=== PATIENT | male | born 1970 | race Caucasian/White ===

== ENCOUNTER 2018-06-19 12:01 | Inpatient (IN) | payer OTHER ==
[~2018-06-19] VITALS: Ht 175.3 cm
--- NOTE | ~2018-06-19 | PROC ---
[address] [address] PROCEDURE REPORT Name: NIKKIE PACKER Room: [address] ADM IN M.R.#: [id number] Admission: 06/19/18 Attend Phys: Vernell Ferreira MD Discharge: Date of : 72 Report #: [id number] THIS REPORT FOR: //name// For GI report, please see the Provation report in Perceptive 7. By: [id number] Records Staff [facility] /YASH
[2018-06-19 12:17] VITALS: BP 117/70
[2018-06-19 12:30] LABS: ABSOLUTE LYMPHOCYTES 1.3 thou/uL (0.8-5.3); ABSOLUTE MONOCYTES 0.3 thou/uL (0.0-1.2); ABSOLUTE NEUTROPHILS 1.8 thou/uL (1.6-8.1); BASOPHILS 0.5 %; EOSINOPHILS 1.4 %; HEMATOCRIT 31.8 % (42.0-52.0); HEMOGLOBIN 11.1 gm/dL (14.0-18.0); MCH 30.7 pg (26.0-34.0); MCHC 34.9 g/dL (28.0-37.0); MCV 87.7 fL (80.0-100.0); MONOCYTES 8.3 %; MPV 9.1 fl. (7.2-11.1); NUCLEATED RBCS 0 /100WBC; PLATELET COUNT* 138 thou/uL (150-400); POLYS 52.8 %; RBC 3.63 mil/uL (4.50-6.00); RDW-CV 15.1 % (10.5-14.5); WBC 3.5 thou/uL (4.0-11.0)
[2018-06-19 12:37] LABS: CALCIUM 7.6 mg/dL (8.5-10.1); CREATININE 0.7 mg/dL (0.6-1.3); POTASSIUM 3.2 mmol/L (3.5-5.1)
[2018-06-19 12:43] LABS: ALBUMIN 2.5 g/dL (3.4-5.0); TOTAL BILIRUBIN 0.4 mg/dL (<0.1-1.0); TOTAL PROTEIN 6.2 g/dL (6.4-8.2)
[2018-06-19 14:08] VITALS: BP 109/74
[2018-06-19 14:15] VITALS: BP 102/66
--- NOTE | 2018-06-19 15:11 | EKG ---
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: [facility] : 1970 Requested By: Devan Sorto Order Number: [id number] MD: Nael Caceres Measurements Intervals [place] Rate: 94 P: 14 AR: 158 QRS: 62 QRSD: 97 T: 3 QT: 394 QTc: 493 Interpretive Statements Sinus rhythm septal infarct, old Borderline T abnormalities, inferior leads No previous ECG available for comparison Electronically Signed On 06-19-2018 15:11:42 PREMIUM CARD CANCELLATION CLERK by Nael Caceres [email or web address] <ELECTRONICALLY SIGNED> By: Nael Caceres MD, [facility] 06/19/18 1511 1246 1246 Nael Caceres MD, FACC /EPI
[2018-06-19 15:16] LABS: URINE BILIRUBIN NEGATIVE (Negative); URINE BLOOD NEGATIVE (Negative); URINE CLARITY CLEAR; URINE COLOR YELLOW; URINE GLUCOSE-RANDOM NEGATIVE (Negative); URINE KETONES NEGATIVE (Negative); URINE LEUKOCYTES-REFLEX NEGATIVE (Negative); URINE NITRITE-REFLEX NEGATIVE (Negative); URINE PROTEIN NEGATIVE (Negative); URINE UROBILINOGEN 0.2 E.U./dl (0.2-1.0)
--- NOTE | 2018-06-19 15:46 | NUR ---
RECEIVED REPORT FROM [facility] IN ED AND ASSUMED CARE OF PT @ 0755.PT IS A/O X4,VSS,ON ROOM AIR.ASSESSMENT CHARTED.IV PATENT WITH IVF INFUSING PER ORDERS.IV ANTIBIOTICS GIVEN.SPECIAL CONTACT ISOLATION INTITATED-PENDING CDIFF RULE OUT.UA COLLECTED.PT IS CALM AND COOPERATIVE WITH NO C/O PAIN AT TIME OF ASSESSMENT.PT IS UP AD DORINA IN ROOM BUT EDUCATED TO CALL FOR ASSISTANCE IF FEELING DIZZY.PT LEFT RESTING IN BED WITH CALL LIGHT WITHIN REACH.WILL CONTINUE TO MONITOR.
[2018-06-19 16:09] LABS: ALBUMIN 2.6 g/dL (3.4-5.0); DIRECT BILIRUBIN 0.1 mg/dL (<0.1-0.3); TOTAL BILIRUBIN 0.3 mg/dL (<0.1-1.0); TOTAL PROTEIN 5.8 g/dL (6.4-8.2)
--- NOTE | 2018-06-19 16:42 | NUR ---
VSS.PT REMAINS ON ROOM AIR.NO C/O PAIN.IV PATENT WITH IVF INFUSING PER ORDERS.ISOLATION MAINTAINED FOR PENDING CDIFF.STOOL SAMPLE COLLECTED.PT INFORMED OF PLAN OF CARE AND COMMUNICATES UNDERSTANDING.HOURLY ROUNDING COMPLETED FOR PT SAFETY.CALL LIGHT AND FALL PRECAUTIONS IN PLACE.WILL CONTINUE TO MONITOR FOR DURATION OF SHIFT.
[2018-06-19 17:01] VITALS: BP 102/72
[2018-06-19 20:00] VITALS: BP 110/73
--- NOTE | 2018-06-20 04:41 | NUR ---
PT A&Ox4. UP AD DORINA. IV L AC PATENT, INFUSING. DIARRHEA OCCURED DURING SHIFT. COLONOSCOPY PREP COMPLETE, STOOL CLEAR. DENIED PAIN. ON ISOLATION PRECAUTIONS FOR A PENDING C-DIFF. NPO AFTER 6AM TODAY. CALL LIGHT WITHIN REACH. HOURLY ROUNDING COMPLETE. WILL CONTINUE TO MONITOR.
[2018-06-20 08:00] VITALS: BP 96/63
[2018-06-20 12:00] VITALS: BP 105/75
[2018-06-20 14:17] LABS: HEMATOCRIT 30.4 % (42.0-52.0); HEMOGLOBIN 10.3 gm/dL (14.0-18.0); MCH 29.8 pg (26.0-34.0); MCHC 33.8 g/dL (28.0-37.0); MCV 88.1 fL (80.0-100.0); MPV 9.3 fl. (7.2-11.1); RBC 3.46 mil/uL (4.50-6.00); RDW-CV 15.1 % (10.5-14.5); WBC 2.2 thou/uL (4.0-11.0)
[2018-06-20 14:42] LABS: ALBUMIN 2.3 g/dL (3.4-5.0); CALCIUM 7.4 mg/dL (8.5-10.1); CREATININE 0.8 mg/dL (0.6-1.3); MAGNESIUM 1.8 mg/dL (1.8-2.4); TOTAL BILIRUBIN 0.4 mg/dL (<0.1-1.0); TOTAL PROTEIN 5.5 g/dL (6.4-8.2)
[2018-06-20 14:57] LABS: POTASSIUM 2.7 mmol/L (3.5-5.1)
[2018-06-20 15:18] LABS: ESR (SEDRATE) 21 mm/hr (0-15)
--- NOTE | 2018-06-20 16:56 | NUR ---
PT.IN BED. SPOKE WITH HIM. HE SAID HE LIVES IN [place]. IS UNEMPLOYED. HAD RECENTLY BEEN TO [facility]. IS NORMALLY INDEPENDENT. WANTING TO KNOW ABOUT ASSISTANCE REGARDING HOSPITAL BILL. OBTAINED AND GAVE HIM A PACKET FOR FINANCIAL ASSISTANCE FROM BUSINESS OFFICE. HE ASKED ABOUT GETTING [place] MEDICA[place]. EXPLAINED HE HAD TO LIVE IN [place] FOR AT LEAST 30 DAYS AND HAVE PROFF OF RESIDENCY. HE COULD THEN APPLY. IF HE QUALIFIED FOR MEDICAID IT WOULD BE RETRO ACTIVE, ONCE IN PLACE, FOR 3 MONTHS. GENERALLY HEALTHY PERSONS WITHOUT A DISABILITY DO NOT QUALIFY FOR MEDICAID.
--- NOTE | 2018-06-20 19:16 | NUR ---
PT IS ALERT AND ORIENTED X 4. NPO FOR EGD AND COLONOSCOPY. DENIED PAIN AND NAUSEA IN AM. PT RETURNED FROM PROCEDURE @ 1250. IVF INFUSING. C/O NAUSEA AND IV MEDICATION GIVEN. UP AD DORINA TO BR. RECEIVED POTASSIUM PER IV ELECTROLYTE REPLACEMENT. ISOLATION PRECAUTIONS AND HOURLY ROUNDS MAINTAINED. WILL USE CALL LIGHT FOR ASSISTANCE.
[2018-06-20 22:06] LABS: HEPATITIS B SURFACE AG Negative (Negative)
--- NOTE | 2018-06-20 23:04 | NUR ---
RECIEVED REPORT AND ASSUMED CARE OF PT AT 1945. PT UP IN ROOM WASHING HANDS AT SINK AT THAT TIME. PT REPORTED NAUSEA IMPROVED FROM EARLIER TODAY. PT DENIES ABDOMINAL PAIN OR DISCOMFORT. CALL LIGHT IN REACH, PT USING APPROPRIATELY.
[2018-06-20 23:08] LABS: HEPATITIS B SURFACE AG Negative (Negative)
[2018-06-21 04:29] LABS: CALCIUM 8.1 mg/dL (8.5-10.1); CREATININE 0.7 mg/dL (0.6-1.3); MAGNESIUM 1.8 mg/dL (1.8-2.4); POTASSIUM 3.4 mmol/L (3.5-5.1)
--- NOTE | 2018-06-21 06:37 | NUR ---
HEART RATE AND BLOOD PRESSURE WITHIN NORMAL LIMITS DURING SHIFT. O2 SAT > 95% ON ROOM AIR. PT AFEBRILE. NO NAUSEA, VOMITING OR DIARRHEA DURING SHIFT. POTASSIUM REPLACED DURING SHIFT. AM LAB VALUES SHOW POTASSIUM LEVEL AT 3.4. PT GIVEN 40 MEQ KCL PO AT 0600. NEXT DOSE DUE AT 0800. PT DENIED PAIN OR DISCOMFORT DURING SHIFT. NO ACUTE CHANGES, WILL CONTINUE TO MONITOR.
[2018-06-21 09:45] VITALS: BP 115/80
[2018-06-21 12:50] LABS: CD3 (T-Mature) 86 % (55-91); CD3 TOTAL CD3 688 cells/uL (550-3003); CD4 (T HELPER) 3 % (33-70); CD8 (T SUPRESSOR) 72 % (4-34); TOTAL CD4 24 cells/uL (401-2310); TOTAL CD8 576 cells/uL (40-1122)
[2018-06-21 12:51] LABS: CD4:CD8 0 (1.0-5.0)
--- NOTE | 2018-06-21 17:53 | NUR ---
PT REMAINED ALERT AND ORIENTED THIS SHIFT. PT DENIED ANY PAIN, NAUSEA OR VOMITING. FALL RISK PRECAUTIONS IN PLACE. PT IS UP AD DORINA, ON ROOM AIR, AND REGULAR DIET. PT IS NO LONGER ON PRECAUTIONS FOR C.DIFF RESULTS CAME BACK NEGATIVE. HOURLY ROUNDING COMPLETED. WILL CONTINUE TO MONITOR.
[2018-06-21 19:15] VITALS: BP 104/71
--- NOTE | 2018-06-21 22:55 | NUR ---
INITAL ASSESMENT COMPLETED AT 1915. PT REPOTS HAVING 4 TO 5 LIQUID STOOLS TODAY. ASKED PT IF I COULD CALL FRO PRN IMMODIUM. PT STATES HE HAS TAKEN IMMODIUM BEFORE BUT DID NOT WANT TO TAKE IT. PT'S IV IN LEFT AC INFILTRATED. IV DISCONTINUED. STARTED 20 GUAGE SALINE LOCK IN RIGHT UPPER ARM ON FIRST ATTEMPT. CALL LIGHT IN REACH, PT USING APPROPRIATELY.
--- NOTE | 2018-06-22 05:59 | NUR ---
PT CONTINUES TO HAVE LOOSE STOOLS. PT CONTINUED ON NORMAL SALINE AT 100 ML/HR. PTS BLOOD PRESSURE AND HEART RATE WITHIN NORMAL LIMITS. PTS O2 SAT > 96% ON ROOM AIR, PT AFEBRILE DURING SHIFT. PT DENIED PAIN, DISCOMFORT OR NAUSEA DURING SHIFT. NO ACUTE CHANGES, WILL CONTINUE TO MONITOR.
[2018-06-22 08:30] VITALS: BP 91/58
[2018-06-22 11:58] VITALS: BP 92/62
[2018-06-22 12:26] LABS: CALCIUM 7.9 mg/dL (8.5-10.1); CREATININE 0.7 mg/dL (0.6-1.3); MAGNESIUM 1.9 mg/dL (1.8-2.4); POTASSIUM 3.3 mmol/L (3.5-5.1)
[2018-06-22 16:43] VITALS: BP 95/50
--- NOTE | 2018-06-22 17:07 | NUR ---
PT REMAINED ALERT AND ORIENTED. PT IS STILL HAVING DIARRHEA, STOOL SAMPLE WAS COLLECTED TODAY. PT POTASSIUM WAS 3.3, GAVE [id number] AND ORDERED REDRAW. PT STATED THEY WANTED TO BE A FULL CODE, SUDHOLT NOTIFIED AND CODE STATUS CHANGED. FALL RISK PRECAUTIONS IN PLACE. HOURLY ROUNDING COMPLETED. WILL CONTINUE TO MONITOR.
--- NOTE | 2018-06-22 19:20 | NUR ---
ASSUMED CARE OF PATIENT. GOALS: REPLACE K IF NEEDED. REST.
[2018-06-22 19:26] VITALS: BP 101/61
[2018-06-23 04:19] LABS: CALCIUM 7.9 mg/dL (8.5-10.1); CREATININE 0.7 mg/dL (0.6-1.3); MAGNESIUM 1.7 mg/dL (1.8-2.4); PHOSPHORUS* 2.8 mg/dL (2.5-4.9)
--- NOTE | 2018-06-23 06:30 | NUR ---
PROGRESSING TOWARDS GOALS. K REPLACED. NOW REPLACING MG. AWAITING STOOL FOR SPECIMEN REQUESTED BY DR. WOLFE.
[2018-06-23 08:31] VITALS: BP 103/61
--- NOTE | 2018-06-23 12:05 | NUR ---
CONTINUE TO FOLLOW. DISCUSSED WITH DR WOLFE, WAS ASKED TO CHECK ON HIV MEDS FOR PT. PT IS UNISURED. MET WITH PT, HE STATED HE ISNT' SURE IF HE PLANS TO STAY IN THE AREA WITH HIS COUSIN CRISTY WHO HE HAS BEEN LIVING WITH RECENTLY OR RETURN TO HIS HOME IN [place]. PT STATED HE IS UNEMPLOYED, NOT SURE HOW HE WILL AFFORD MEDS. HE DENIES BEING ON ANY HIV [place] IN PAST, HAS BEEN + FOR 5YRS. PT IS WILLING TO HAVE CM CHECK WITH THE [facility] RE: POSSIBLE ASSIST WITH MEDS. CALLED AND LEFT MESSAGE FOR [facility] [phone]. WILL FOLLOW
--- NOTE | 2018-06-23 17:38 | NUR ---
PT REMAINED ALERT AND ORIENTED. PT MAGNESIUM WAS 1.7, REPLACED PER PROTOCOL AND ORDERED A RECHECK OF MAGNESIUM. DIARRHEA STILL PRESENT. FALL RISK PRECAUTIONS IN PLACE. HOURLY ROUNDING COMPLETED. WILL CONTINUE TO MONITOR.
[2018-06-23 20:14] VITALS: BP 92/58
--- NOTE | 2018-06-24 04:57 | NUR ---
PATIENT HAS REMAINED ALERT AND ORIENTED X 4 THROUGHOUT THE SHIFT AND RESTING QUIETLY ON HOURLY ROUNDS. UP INDEPENDENTLY IN THE ROOM. REPORTED 3-4 DIARRHEA STOOLS DURING THE DAY. TOTAL HAS NOT BEEN ASSESSED FOR OVERNIGHT. BRIEF NAUSEA AT START OF SHIFT WHICH RESOLVED WITHOUT INTERVENTION. MAGNESIUM REPLACED AGAIN FOR PREVIOUS REDRAW AT 1.7. AM LAB PENDING. TEMP 100.1. CONTINUE TO MONITOR.
[2018-06-24 07:52] VITALS: BP 94/61
[2018-06-24 10:17] LABS: CALCIUM 7.7 mg/dL (8.5-10.1); CREATININE 0.7 mg/dL (0.6-1.3); MAGNESIUM 2.1 mg/dL (1.8-2.4); POTASSIUM 3.1 mmol/L (3.5-5.1)
[2018-06-24 17:10] VITALS: BP 99/72
--- NOTE | 2018-06-24 17:24 | NUR ---
PT REMAINED ALERT AND ORIENTED THIS SHIFT. POTASSIUM WAS LOW, POTASSIUM GIVEN PER PROTOCOL. HOURLY ROUNDING COMPLETED. WILL CONTINUE TO MONITOR.
[2018-06-24 19:30] VITALS: BP 83/52
--- NOTE | 2018-06-25 04:41 | NUR ---
PATIENT REMAINS ALERT AND ORIENTED X 4 THROUGHOUT THE SHIFT AND RESTING QUIETLY ON HOURLY ROUNDS. DENIES PAIN OR NAUSEA TONIGHT. STATES PASSING A LOT OF GAS AND CONTINUES TO HAVE WATERY DIARRHEA STOOLS. MEDS & IVF'S PROVIDED ORDERED. BP REMAINS LOW. DENIES DIZZINESS. AM LAB PENDING. CONTINUE TO MONITOR.
[2018-06-25 05:57] LABS: ABSOLUTE EOSINOPHILS 0.1 thou/uL (0.0-0.7); ABSOLUTE LYMPHOCYTES 1.2 thou/uL (0.8-5.3); ABSOLUTE MONOCYTES 0.4 thou/uL (0.0-1.2); ABSOLUTE NEUTROPHILS 2.3 thou/uL (1.6-8.1); BASOPHILS 0.7 %; EOSINOPHILS 3.4 %; HEMATOCRIT 31.3 % (42.0-52.0); HEMOGLOBIN 10.8 gm/dL (14.0-18.0); LYMPHOCYTES 29.2 %; MCH 30.1 pg (26.0-34.0); MCHC 34.5 g/dL (28.0-37.0); MCV 87.4 fL (80.0-100.0); MONOCYTES 10.7 %; MPV 9.5 fl. (7.2-11.1); NUCLEATED RBCS 0 /100WBC; PLATELET COUNT* 121 thou/uL (150-400); RBC 3.59 mil/uL (4.50-6.00); RDW-CV 15.6 % (10.5-14.5); WBC 4.2 thou/uL (4.0-11.0)
[2018-06-25 06:17] LABS: CALCIUM 7.6 mg/dL (8.5-10.1); CREATININE 0.7 mg/dL (0.6-1.3); POTASSIUM 3.9 mmol/L (3.5-5.1)
[2018-06-25 08:02] VITALS: BP 84/40
--- NOTE | 2018-06-25 11:07 | PATH ---
[address] [address] PATHOLOGY RPT PROCEDURE Name: CLARENCE CAN Room: [address] ADM IN M.R.#: [id number] Admission: 06/19/18 Date of : 72 Discharge: Report #: [id number] Path Case #: [id number] [facility] Accession Number: [id number] . 01 Material submitted: . PART A: DUODENAL BIOPSY PART B: ANTRAL BIOPSY PART C: RIGHT COLON BIOPSY PART D: LEFT COLON BIOPSY . 01 Clinical history: . None provided . 02 Diagnosis: A. Duodenum "duodenal biopsy": - No obvious diagnostic changes. - There is no evidence of acute cryptitis, granulomas, adenomatous change, sprue-like changes or malignancy. . B. Gastric biopsy, "antrum": - Mild chronic reactive gastropathy. - There is no evidence of active gastritis or malignancy. - The immunoperoxidase stains for Helicobacter pylori is negative. . C. Colonic mucosa, "right colon biopsy": - No obvious diagnostic changes. - There is no evidence of acute cryptitis, granulomata, adenomatous change or malignancy. . D. Colonic mucosa, "left colon biopsy": - Mild to moderately active chronic colitis with acute cryptitis and crypt abscesses with mild architectural distortion and decreased mucin. See comment. . ([facility]; 06/23/18) [facility]/06/23/2018 . 02 Comment: D. The differential includes infectious colitis and inflammatory bowel disease. . No obvious granulomas identified. . Suggest clinical and endoscopic correlation. There is some architectrual changes and decrease mucin which favor inflammatory bowel disease. There is no dysplasia [place] [id number] PATHOLOGY RPT PROCEDURE Name: CLARENCE CAN Room: [address] IN [facility].#: [id number] Admission: 06/19/18 Date of : 72 Discharge: Report #: [id number] Path Case #: [id number] . . . ([facility]; 06/23/18) . 02 Electronically signed: . Abdoulaye Burton MD, Pathologist NPI- [id number] . 01 Gross description: . A. Received in formalin labeled "Clarence Can, duodenal biopsy," are 2 segments of samuels soft tissue measuring 1.0 x 0.3 x 0.2 cm in aggregate dimensions and ranging from 0.5 to 0.6 cm in maximum dimension. The specimen is submitted entirely in cassette A1. . B. Received in formalin labeled "Clarence Can, antral biopsy," are 2 segments of samuels soft tissue measuring 0.7 x 0.2 x 0.2 cm in aggregate dimensions and ranging from 0.3 to 0.4 cm in maximum dimension. The specimen is submitted entirely in cassette B1. . C. Received in formalin labeled "Clarence Can, right colon biopsies," are 2 segments of samuels soft tissue measuring 0.7 x 0.3 x 0.2 cm in aggregate dimensions and ranging from 0.3 to 0.4 cm in maximum dimension. The specimen is submitted entirely in cassette C1. . D. Received in formalin labeled "Clarence Can, left colon biopsies," are multiple segments of samuels soft tissue measuring 1.1 x 0.5 x 0.2 cm in aggregate dimensions. The specimen is filtered and entirely submitted in cassette D1. ([facility]; 06/20/2018) TOB/TOB . 02 Pathologist provided ICD-10: K31.9, K52.9, R19.7 . 02 CPT . 835531, 492690, 601313, 209856, Y84349 Specimen Comment: A courtesy copy of this report has been sent to Specimen Comment: [phone], . Specimen Comment: Report sent to / DR MATTA Specimen Comment: A duplicate report has been generated due to demographic updates. Performed at: [address], [place] [id number] MD Jhoan Cornell MD Phone: [phone] Performed at: [facility] [address] [place], [place] [id number] [place] [address] [place] [address] PATHOLOGY RPT PROCEDURE Name: CLARENCE CAN Room: [facility]- ADM IN M.R.#: [id number] Admission: 06/19/18 Date of : 72 Discharge: Report #: [id number] Path Case #: [id number] MD Willie Ordonez MD Phone: [phone]
[2018-06-25 12:05] LABS: HIV 1 AB Positive (Negative); HIV 2 AB Negative (Negative); HIV-1/HIV-2 ANTIBODY Reactive (Non Reactive)
[2018-06-25 16:00] VITALS: BP 96/54
--- NOTE | 2018-06-25 16:11 | NUR ---
PATIENT REMAINS ALERT AND ORIENTED. MULTIPLE WATERY STOOLS TODAY. AGREED TO START LOMOTIL. HERBER ALSO STARTED THIS SHIFT. PATIENT DENIES PAIN. UP AD DORINA. IVF INFUSING ORDERED. EATING SMALL AMOUNTS OF REGULAR DIET. CALL LIGHT WITHIN REACH. WILL CONTINUE TO MONITOR.
[2018-06-25 20:00] VITALS: BP 83/54
--- NOTE | 2018-06-26 04:53 | NUR ---
PT REMAINED A&Ox4 DURING SHIFT. VITALS STABLE. BP IN 80S IS NORMAL FOR PT, ASYMPTOMATIC. IV IN R FA PATENT, INFUSING. PT UP AD DORINA, AMBULATES WITH NO TROUBLE. DENIED PAIN DURING SHIFT. HIV MEDICATION SCHEDULED TO START IN AM. PT SLEPT WELL MOST OF SHIFT. CALL LIGHT WITHIN REACH. HOURLY ROUNDING COMPLETE. WILL CONTINUE TO MONITOR.
--- NOTE | 2018-06-26 06:08 | NUR ---
Patient is alert and oriented x 4. I agree with Beni assessment and charting.
[2018-06-26 08:55] VITALS: BP 92/70
--- NOTE | 2018-06-26 08:55 | NUR ---
SECOND MESSAGE LEFT FOR [facility] [phone]- REGARDING CHARTITY MEDICATIONS FOR DISCHARGE.
--- NOTE | 2018-06-26 11:43 | NUR ---
SPOKE WITH [facility] [place], WHO GAVE ME NAME AND PHONE NUMBER OF [facility] IN [facility] OFFICE [phone]. CALLED [facility]. SHE SAID WHENEVER PT.WAS TESTED AND A POSITIVE RESULT CAME BACK, IT WOULD AUTOMATICALLY BE REPORTED TO THE HEALTH DEPT. IF PT.LIVES HERE OR PLANS ON STAYING IN [facility], HE WOULD BE REFERRED TO [facility] CASE MANAGEMENT. THEY WOULD SET UP APPT.FOR PT.TO COME IN TO HAVE FURTHER BLOOD DRAWN TO GET GENOTYPE AND ASSIST THEM WITH MEDICATION, RESOURCES, ETC. WILL DISCUSS WITH PT.AND .
--- NOTE | 2018-06-26 14:51 | CON ---
[address] [address] CONSULTATION Name: NIKKIE PACKER Room: [address] IN M.R.#: [id number] Admission: 06/19/18 Attend Phys: Vernell Ferreira MD Discharge: Date of : 72 Report #: [id number] THIS REPORT FOR: //name// CC: LIZETTE physician/PCP Vernell Ferreira DATE OF SERVICE: 06/19/2018 REASON FOR CONSULTATION: Persistent diarrhea and weight loss. HISTORY OF PRESENT ILLNESS: This is a 47-year-old male, with history of HIV, who has never been treated. The patient reports that he has been traveling overseas, mainly in [place] and [facility] and for the past 3 months, he has developed diarrhea. He has had up to 10 bowel movements per day, which is usually watery. He occasionally takes Imodium, which subsides the diarrhea for a bit, but then, his diarrhea resumes. He has been tried on different antibiotics including azithromycin, Flagyl, Bactrim and Xifaxan. The patient denies any hematochezia, melena, nausea, vomiting or hematemesis. His nausea is mostly associated with taking Flagyl. He also admits to losing 36 pounds over the past month and a half. PAST MEDICAL HISTORY: Significant for diagnosis of HIV 3 years ago, note that he has never been treated for it. ALLERGIES: No known drug allergies. MEDICATIONS: The patient is not on any medications. He has had recent antibiotic therapy for his diarrhea. SOCIAL HISTORY: The patient denies tobacco or alcohol use. 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 FAMILY HISTORY: Significant for subdural hematoma in the mother and heart disease in father. PHYSICAL EXAMINATION: VITAL SIGNS: Blood pressure of 117/70, respiration 18, pulse 107, temperature 99.5. LUNGS: Clear. CARDIOVASCULAR: Regular. ABDOMEN: Soft, nontender, nondistended. Bowel sounds are positive. LABORATORY DATA: Reveal sodium of 143, potassium 3.2, BUN is 10, creatinine 0.7, glucose 96, AST 39, ALT 42, calcium is 7.6, total bilirubin 0.3, lipase 291. WBC is 3.5 with hemoglobin of 11.1 and platelets of 138. [place] [address] CONSULTATION Name: NIKKIE PACKER Room: [address] IN [facility].#: [id number] Admission: 06/19/18 Attend Phys: Vernell Ferreira MD Discharge: Date of : 72 Report #: [id number] IMAGING: CT of abdomen and pelvis was obtained. There was no inflammatory mass, ascites or evidence of bowel obstruction noted. There are scattered small lymph nodes within the central mesentery, which may be nonspecific or secondary to mild mesenteric adenitis. ASSESSMENT AND PLAN: The patient with persistent diarrhea for the past 3 months and loss of over 30 pounds for the same time. He has been overseas in [place] and [place], therefore, we will check stool for infectious etiology of his diarrhea. Also, we will check C. diff and schedule him for upper and lower endoscopy. In reference to his human immunodeficiency virus syndrome, we will consult infectious disease. <ELECTRONICALLY SIGNED> By: Kacie Lee MD 06/26/18 1451 [id number] [id number] Lee MD /nt
--- NOTE | 2018-06-26 15:56 | NUR ---
MADE ROUNDS WITH . EXPLAINED HEALTH DEPT AND THAT IF HE CHOSE TO STAY HERE OR MOVE HERE, THEY WOULD SET HIM UP WITH BARBED WIRE MACHINE OPERATOR TO GET MEDS,RESOURCES,ETC. HE SAID HIS FAMILY DID NOT KNOW ABOUT HIS DX. CM CALLED [facility]. HAND UPPER AND BOTTOM LACER CONNECTED ME TO [facility] OFFICE. HAD TO LEAVE A MESSAGE.
[2018-06-26 16:00] VITALS: BP 102/67
[2018-06-26 20:00] VITALS: BP 90/62
--- NOTE | 2018-06-27 04:31 | NUR ---
PT REMAINED A&Ox4 DURING SHIFT. IV IN R FA PATENT, INFUSING. TAPE CHANGED ON IV. PT SHOWERED AND LINENS CHANGED. DENIED PAIN. VITALS STABLE. PT GAIT IS STEADY AND WAS UP AD DORINA. HOURLY ROUNDING COMPLETE. CALL LIGHT WITHIN REACH. WILL CONTINUE TO MONITOR.
--- NOTE | 2018-06-27 05:37 | NUR ---
Alert and oriented x 4. He is up independently. I agree with Beni TORRESfiberglass boat builder and charting.
[2018-06-27 08:51] VITALS: BP 92/57
[2018-06-27 15:53] VITALS: BP 108/53
[2018-06-27 16:36] VITALS: BP 108/53
--- NOTE | 2018-06-27 16:45 | NUR ---
PATIENT REMAINS ALERT AND ORIENTED. DENIES PAIN. REPORTS NAUSEA TODAY. PHERNERGAN IV GIVEN. REFUSED ZOFRAN. REFUSED SOME PO MEDICATION TODAY DUE TO NAUSEA. UP AD DORINA. REPORTS 4 LOOSE STOOLS AT THIS TIME. IVF INFUSING ORDERED. EATING SMALL AMOUNTS OF MEALS. CALL LIGHT WITHIN REACH. WILL CONTINUE TO MONITOR.
--- NOTE | 2018-06-27 16:54 | NUR ---
GAVE NAME,ADDRESS AND PHONE NUMBER FOR [facility] TO [facility]ARE. INFORMATION ALSO PUT IN DC INSTRUCTIONS. CLINIC THAT CAN SET PT.UP WITH EVALUATION ADVISOR TO ASSIST WITH ALL ASPECTS OF DX AND POSSIBLE MEDS. HE STILL HAS NOT DECIDED IF HE WILL STAY IN OR GO BACK TO [place].
[2018-06-27 19:58] VITALS: BP 94/58
[2018-06-28 04:29] LABS: HEMATOCRIT 29.7 % (42.0-52.0); HEMOGLOBIN 10.4 gm/dL (14.0-18.0); MCH 30.2 pg (26.0-34.0); MCHC 34.8 g/dL (28.0-37.0); MCV 86.8 fL (80.0-100.0); MPV 10.1 fl. (7.2-11.1); RBC 3.43 mil/uL (4.50-6.00); RDW-CV 15.6 % (10.5-14.5); WBC 3.3 thou/uL (4.0-11.0)
[2018-06-28 04:53] LABS: ALBUMIN 2.2 g/dL (3.4-5.0); CALCIUM 7.5 mg/dL (8.5-10.1); CREATININE 0.7 mg/dL (0.6-1.3); POTASSIUM 3.3 mmol/L (3.5-5.1); TOTAL BILIRUBIN 0.2 mg/dL (<0.1-1.0); TOTAL PROTEIN 5.3 g/dL (6.4-8.2)
--- NOTE | 2018-06-28 05:19 | NUR ---
pt remained alert and oriented this shift. pt denied any needs or concerns this shift. fall risk precautions in place. hourly rounding completed. will continue to monitor.
[2018-06-28 07:30] VITALS: BP 98/63
[2018-06-28 15:40] VITALS: BP 92/60
--- NOTE | 2018-06-28 16:25 | NUR ---
ASSUMED CARE OF PATIENT AFTER REPORT AT APPROX 0730. ALERT AND ORIENTED X4. ASSESSMENT COMPLETED AND CHARTED. VSS ON ROOM AIR. FLUIDS AND ANTIBIOTICS INFUSED ORDERED. NO COMPLAINTS OF PAIN OR SOA. SOME COMPLAINTS OF NAUSEA BUT DID NOT ASK FOR MEDICATION. HOURLY ROUNDS COMPLETED. EDUCATED ON FALL RISKS AND PATIENT COMMUNICATED UNDERSTANDING. PATIENT UP AD DORINA IN THE ROOM. CALL LIGHT WITHIN REACH. NURSING WILL CONTIUE TO MONITOR.
[2018-06-28 20:08] VITALS: BP 99/65
--- NOTE | 2018-06-29 04:54 | NUR ---
PT REMAINED ALERT AND ORIENTED THIS SHIFT. PT SLEPT THROUGHOUT NIGHT. FALL RISK PRECAUTIONS IN PLACE. HOURLY ROUNDING COMPLETED. WILL CONTINUE TO MONITOR.
[2018-06-29 07:30] VITALS: BP 107/66
[2018-06-29 16:13] VITALS: BP 85/51
--- NOTE | 2018-06-29 16:38 | NUR ---
ASSUMED CARE OF PATIENT AFTER REPORT AT APPROX 0730. ALERT AND ORIENTED X4. ASSESSMENT COMPLETED AND CHARTED. VSS ON ROOM AIR. NO COMPLAINTS OF PAIN, NAUSEA, OR SOA. FLUIDS AND ANTIBIOTICS INFUSED AND ADMINISTERED ORDERED. DECREASE IN STOOLS TODAY. UP AD DORINA. HOURLY ROUNDS COMPLETED, PATIENT FOUND RESTING IN BED UPON ROUNDS. CALL LIGHT WITHIN REACH. NURSING WILL CONTINUE TO MONITOR.
[2018-06-29 20:15] VITALS: BP 124/78
--- NOTE | 2018-06-30 05:47 | NUR ---
PT REMAINED ALERT AND ORIENTED THIS SHIFT. PT HAS SEVERAL DIARRHEA STOOLS THIS MORNING, PT REPORTS 5 SINCE 3 AM. FALL RISK PRECAUTIONS IN PLACE. HOURLY ROUNDING COMPLETED. WILL CONTINUE TO MONITOR.
[2018-06-30 08:30] VITALS: BP 97/62
--- NOTE | 2018-06-30 13:53 | NUR ---
Nutrition: please weigh patient.
--- NOTE | 2018-06-30 15:50 | NUR ---
SPOKE WITH PT.IN ROOM. HE SAID HE FEELS HE WILL BE DISCHARGED IN THE NEXT SEVERAL DAYS. HE HAS READ THERE SHOULD BE NO INTERUPTION OF MEDICATION THAT HE IS ON. ASKING HOW HE WILL GET THIS MED. HE SAID HE HAS DECIDED TO STAY IN AREA. HE WILL BE STAYING WITH HIS COUSIN. COUSIN DOES NOT KNOW HIS DX. HE PLANS ON KEEPING IT CONFIDENTIAL FOR NOW. CM CALL[facility] AND [facility] [phone]. THEY HAVE NOT RECEIVED ANY FAX FROM OUR LAB. FAXED HER LAB RESULTS REQUESTED TO [phone]. SHE WILL REVIEW AND SET PT.UP WITH A DIRECTOR VISUAL. SHE WILL CALL THIS CM BACK WITH INFORMATION. CM WILL DISCUSS WITH PHARMACY.
[2018-06-30 16:32] VITALS: BP 94/61
--- NOTE | 2018-06-30 16:39 | NUR ---
PATIENT REMAINS ALERT AND ORIENTED. DENIES PAIN. VSS. TINCTURE OF OPIUM STARTED TODAY. PATIENT WOULD LIKE TO JUST TAKE THE OPIUM AT HS IT MADE HIM DROWSY. NEW ANTIVIRALS STARTED TODAY. TOLERATING DIET. HAS NOT HAD DIARRHEA SINCE THIS AM. UP AD DORINA. CASE MANAGEMENT WORKING WITH PATIENT FOR MEDICATION COVERAGE. CALL LIGHT WITHIN REACH. WILL CONTINUE TO MONITOR.
[2018-06-30 21:00] VITALS: BP 101/65
--- NOTE | 2018-07-01 04:51 | NUR ---
PT REMAINED A&Ox4 THROUGHOUT SHIFT. VITALS STABLE. UP AD DORINA IN ROOM. PT GOT 6 DROPS OF OPIUM, PER REQUEST INSTEAD OF 12 DROPS. WAS PLEASENT AND SLEPT MOST OF NIGHT. DENIED PAIN. IV R FA PATENT, SL. CALL LIGHT WITHIN REACH. HOURLY ROUNDING COMPLETE. WILL CONTINUE TO MONITOR.
[2018-07-01 06:59] LABS: HEMOGLOBIN 10.4 gm/dL (14.0-18.0); MCH 30.4 pg (26.0-34.0); MCHC 34.7 g/dL (28.0-37.0); MCV 87.6 fL (80.0-100.0); MPV 9.4 fl. (7.2-11.1); RBC 3.42 mil/uL (4.50-6.00); RDW-CV 15.9 % (10.5-14.5); WBC 2.6 thou/uL (4.0-11.0)
[2018-07-01 07:19] LABS: ALBUMIN 2.3 g/dL (3.4-5.0); CREATININE 0.7 mg/dL (0.6-1.3); MAGNESIUM 1.9 mg/dL (1.8-2.4); POTASSIUM 3.5 mmol/L (3.5-5.1); TOTAL BILIRUBIN 0.3 mg/dL (<0.1-1.0); TOTAL PROTEIN 5.8 g/dL (6.4-8.2)
[2018-07-01 10:00] VITALS: BP 100/64
[2018-07-01 16:43] VITALS: BP 184/70
--- NOTE | 2018-07-01 16:44 | NUR ---
SPOKE WITH PT. HE SAID HE'S EITHER CONSTIPATED OR HAVING LOOSE STOOLS. HE HAS NOT BEEN ABLE TO GET A HAPPY MEDIUM. HE HAS NOT HEARD FROM THE HEALTH DEPT. HE INQUIRED IF WE COULD GIVE HIM MEDICATION TO GET HIM COVERED UNTIL HE DOES GET AN APPT.WITH THE CM FROM THE HEALTH DEPT. PER FRANCY/CM JUNIOR PHP DEVELOPER, HOSPITAL CANNOT SUPPLY THESE MEDICATIONS AT DISCHARGE. HE SEEMED UNHAPPY ABOUT THIS. CM WILL CALL [facility]/HEALTH DEPT IN AM.
--- NOTE | 2018-07-01 16:51 | NUR ---
PATIENT REMAINS ALERT AND ORIENTED. OPIUM X1 FOR 2 DIARRHEA STOOLS. DENIES PAIN OR NAUSEA. UP AD DORINA. IV SALINE LOCKED. DISCHARGE PLANNING IN PROGRESS. CALL LIGHT WITHIN REACH. WILL CONTINUE TO MONITOR.
[2018-07-01 22:05] VITALS: BP 138/66
[2018-07-02 04:45] LABS: HEMATOCRIT 30.7 % (42.0-52.0); HEMOGLOBIN 10.7 gm/dL (14.0-18.0); MCH 30.5 pg (26.0-34.0); MCHC 34.7 g/dL (28.0-37.0); MCV 87.8 fL (80.0-100.0); RBC 3.5 mil/uL (4.50-6.00); RDW-CV 15.5 % (10.5-14.5); WBC 3.1 thou/uL (4.0-11.0)
[2018-07-02 04:59] LABS: ALBUMIN 2.3 g/dL (3.4-5.0); CREATININE 0.6 mg/dL (0.6-1.3); POTASSIUM 3.4 mmol/L (3.5-5.1); TOTAL BILIRUBIN 0.3 mg/dL (<0.1-1.0)
--- NOTE | 2018-07-02 05:15 | NUR ---
ASSUMED CARE OF PATIENT AFTER REPORT AT APPROX 1930. ALERT AND ORIENTED X4. ASSESSMENT COMPLETED AND CHARTED. VSS ON ROOM AIR. NO COMPLAINTS OF NAUSEA OR SOA. PAIN HAS BEEN MINIMAL AND MANAGED WITH ORAL OPIUM DROPS. UP AD DORINA. PATIENT SLEPT WELL THROUGH THE NIGHT. HOURLY OUNDS COMPLETED. CALL LIGHT WITHIN REACH. NURSING WILLC ONTINUE TO MONITOR.
[2018-07-02 09:16] VITALS: BP 97/64
[2018-07-02] MEDS ORDERED: LOMOTIL TABLET1 EACH PO (09:18)
[2018-07-02] MEDS ORDERED: CELEXA 20 MG TA20 MG PO (09:18)
[2018-07-02] MEDS ORDERED: TRUVADA 200 MG1 EACH PO (09:18)
[2018-07-02] MEDS ORDERED: VALCYTE450 MG PO (09:18)
[2018-07-02] MEDS ORDERED: AZITHROMYCIN 2250 MG PO (09:18)
[2018-07-02] MEDS ORDERED: OPIUM TINC10 MG/1 M1 PO (09:18)
[2018-07-02] MEDS ORDERED: BACTRIM DS TAB1 EACH PO (09:18)
[2018-07-02] MEDS ORDERED: BUDESONIDE EC3 MG PO (09:18)
[2018-07-02] MEDS ORDERED: BENTYL 20 MG TA20 M1 PO (09:18)
--- NOTE | 2018-07-02 14:00 | NUR ---
[facility]/ HEALTH DEPT. CALLED CM. SHE SAID PT.COULD CALL HER DIRECTLY AND SHE WILL SET HIM UP WITH A CM TO ASSIST HIM. GAVE HIM HER PHONE NUMBER [phone], WE[place] ADDRESS. TOLD HER HE WAS VERY CONCERN ABOUT DELAY OF GETTING MEDS THAT HE HAS BEEN ON IN THE HOSPITAL. SPOKE WITH PT.AND GAVE INFORMATION TO HIM. ALSO REMINDED HIM OF AGENCY CALLED [facility] TO CARE THAT I GAVE HIM INFORMATION ON LAST WEEK.
[2018-07-02 14:40] VITALS: BP 108/53
--- NOTE | 2018-07-02 17:26 | NUR ---
PT REMAINED ALERT AND ORIENTED. PT REQUESTED TINCTURE OF OPIUM TO HELP WITH DIARRHEA. PT HAD DISCHARGE ORDERS, HOWEVER DUE TO TAKING SEVERAL DAYS FOR OUTPATIENT CASE MANAGEMENT TO OBTAIN MEDS FOR PT, WILL WAIT TO DISCHARGE. FALL RISK PRECAUITONS IN PLACE. HOURLY ROUNDING COMPLETED. WILL CONTINUE TO MONITOR.
[2018-07-02 19:15] VITALS: BP 106/70
--- NOTE | 2018-07-02 22:54 | NUR ---
RECIEVED REPORT AND ASSUMED CARE OF PT AT 1915. PT DENIED PAIN OR DISCOMFORT AT THAT TIME. PT LATER REQUESTED TINCTURE OF OPIUM FOR TREATMENT OF LOOSE BOWELS. CALL JASMINE IN REACH, PT USING APPROPRIATELY.
[2018-07-03 05:30] VITALS: BP 98/56
--- NOTE | 2018-07-03 06:52 | NUR ---
VITAL SIGNS WITHIN NORMAL LIMITS. NO ACUTE CHANGES, WILL CONTINUE TO MONITOR
[2018-07-03 08:48] VITALS: BP 114/77
[2018-07-03 13:40] LABS: ABSOLUTE EOSINOPHILS 0.2 thou/uL (0.0-0.7); ABSOLUTE LYMPHOCYTES 1.3 thou/uL (0.8-5.3); ABSOLUTE MONOCYTES 0.3 thou/uL (0.0-1.2); ABSOLUTE NEUTROPHILS 3.1 thou/uL (1.6-8.1); BASOPHILS 0.1 %; EOSINOPHILS 4.5 %; HEMATOCRIT 32.7 % (42.0-52.0); HEMOGLOBIN 11.1 gm/dL (14.0-18.0); LYMPHOCYTES 26.7 %; MCH 30.2 pg (26.0-34.0); MCV 88.8 fL (80.0-100.0); MONOCYTES 6.5 %; MPV 9.4 fl. (7.2-11.1); NUCLEATED RBCS 0 /100WBC; PLATELET COUNT* 202 thou/uL (150-400); POLYS 62.2 %; RBC 3.68 mil/uL (4.50-6.00)
[2018-07-03 13:59] LABS: ALBUMIN 2.5 g/dL (3.4-5.0); CALCIUM 8.1 mg/dL (8.5-10.1); CREATININE 0.7 mg/dL (0.6-1.3); POTASSIUM 3.8 mmol/L (3.5-5.1); TOTAL BILIRUBIN 0.3 mg/dL (<0.1-1.0); TOTAL PROTEIN 5.8 g/dL (6.4-8.2)
[2018-07-03 16:00] VITALS: BP 95/66
--- NOTE | 2018-07-03 16:16 | NUR ---
PAINTLESS DENT REPAIR TECHNICIAN SPOKE TO LYNN WITH [facility]. LYNN INFORMS THAT THE AGENCY IS 'UNABLE TO ASSIST THE PATIENT WITH GETTING THE NEEDED MEDS TODAY, HE DOES NOT HAVE PROOF OF ADDRESS'. LYNN PLANS TO ASSIST THE PATIENT BY SENDING HIM A CERTIFIED LETTER TO USE PROOF OF ADDRESS AND THEN THEY WILL BE ABLE TO GET THE MEDS FOR HIM BY NEXT SATURDAY OR SATURDAY. LYNN WILL WILL COME TO THE HOSPITAL ON SATURDAY TO MEET WITH THE PATIENT TO COMPLETE THE MEDICATION REFERRAL. D/C SUPERVISOR COLOR MAKING SPOKE TO THE PATIENT TO DISCUSS THIS. PATIENT CONFIRMS THIS INFO AND STATES THAT HE PREFERS TO 'REMAIN IN THE HOSPITAL' UNTIL HE HAS THE MEDS 'STOPPING THEM ABRUBTLY COULD HAVE ADVERSE EFFECTS'. D/C SUPERVISOR COLOR MAKING INFORMED THE PHYSICIAN OF THIS INFO. CM WILL REMAIN AVAILABLE TO ASSIST AND FOLLOW NEEDED.
--- NOTE | 2018-07-03 17:36 | NUR ---
PT REMAINED ALERT AND ORIENTED. PT HAS BEEN HVAING DIARRHEA, GIVEN LOMOTIL SCHEDULED BEFORE TINCTURE OF OPIUM. PT HAD DC ORDERS HOWEVER AWAITING SET UP FOR MEDS OUTSIDE OF HOSPITAL, OUTPATIENT CASE MANAGEMENT CANNOT GET THEM UNTIL SATURDAY. FALL RISK PRECAUTIONS IN PLACE. HOURLY ROUNDING COMPLETED. WILL CONTINUE TO MONITOR.
[2018-07-03 21:00] VITALS: BP 106/73
--- NOTE | 2018-07-04 06:22 | NUR ---
PT RECIEVING SCHEDULED LOMOTIL FOR TREATMENT OF DIARRHEA. PT RECIEVING PRN OPIUM TINCTURE FOR DIARRHEA. PT'S VITAL SIGNS WITHIN NORMAL LIMITS. NO ACUTE CHANGES DURING SHIFT. WILL CONTINUE TO MONITOR.
[2018-07-04 08:23] VITALS: BP 108/64
[2018-07-04 14:20] VITALS: BP 108/53
[2018-07-04 16:23] VITALS: BP 103/53
[2018-07-04 16:31] VITALS: BP 108/53
[2018-07-04 16:52] VITALS: BP 108/53
--- NOTE | 2018-07-04 17:11 | NUR ---
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 FAXED PRESCRIPTIONS FROM TO [facility] PHARMACIST/KAUSHAL HOWARD SPOKE WITH HIM. MEDS ARRIVED. GAVE TO BRIAN FORREST. INFORMED PT.HE COULD BE DISCHARGED . HE WAS RELUCTANT TO LEAVE HE WOULD NOT BE ABLE TO GET HIS OTHER MEDS UNTIL HE MET WITH CM FROM [facility] TO CARE. SUGGESTED HE JUST BUY PARTIAL AMOUNTS OF HIS PRESCRIPTIONS. LOOKED UP AMOUNT OF PRESCRIPTIONS ON [facility]. CHEAPEST WERE FOUND AT [facility]. OBTAINED AND GAVE PT.[facility] DISCOUNT CARD, COPY OF LABS PER HIS REQUEST, NUMBER/ADDRESS FOR [facility] OUTPT.PHARMACY IF HE NEEDS ONE REFILL ON MEDS THAT WERE SUPPLIED FOR HIM. HE ALSO NEEDED A CAB VOUCHER WHICH WAS SUPPLIED. NURSING TO CALL FOR TAXI.
--- NOTE | 2018-07-04 17:18 | NUR ---
PT REMAINED ALERT AND ORIENTED. PT WAS GIVEN PRESCRIPTIONS FOR HIV FROM THE HOSPITAL. IV REMOVED. PT REQUESTED EVENING MEDS TO BE GIVEN NOW BEFORE HE LEAVES. PRESCRIPTIONS GIVEN, CARE NOTES GIVEN TO PATIENT. FALL RISK PRECAUITONS IN PLACE. HOURLY ROUNDING COMPLETED. PT HAS CAB VOUCHER AND WILL LEAVE TO HOME FOR SELF CARE.
== END 2018-07-04 17:00 | disposition home or self-care (01) | DRG 974 ==
LOC: M.ERS 12:01 → M.TBA-ER 13:28 → M.ORTHSURG 13:28
PROVIDERS: Family Medicine; Internal Medicine; Internal Medicine Gastroenterology; Specialist; ADMIT Family Medicine
PROC: 0DBH8ZX Excision of Cecum, Via Natural or Artificial Opening Endoscopic, Diagnostic (ICD-10-PCS; principal; 2018-06-20)
PROC: 0DB68ZX Excision of Stomach, Via Natural or Artificial Opening Endoscopic, Diagnostic (ICD-10-PCS; principal; 2018-06-20)
PROC: 0DBL8ZX Excision of Transverse Colon, Via Natural or Artificial Opening Endoscopic, Diagnostic (ICD-10-PCS; principal; 2018-06-20)
PROC: 0DBN8ZX Excision of Sigmoid Colon, Via Natural or Artificial Opening Endoscopic, Diagnostic (ICD-10-PCS; principal; 2018-06-20)
PROC: 0DBM8ZX Excision of Descending Colon, Via Natural or Artificial Opening Endoscopic, Diagnostic (ICD-10-PCS; principal; 2018-06-20)
PROC: 0DB98ZX Excision of Duodenum, Via Natural or Artificial Opening Endoscopic, Diagnostic (ICD-10-PCS; principal; 2018-06-20)
PROC: 0DBK8ZX Excision of Ascending Colon, Via Natural or Artificial Opening Endoscopic, Diagnostic (ICD-10-PCS; principal; 2018-06-20)
DX: B20 Human immunodeficiency virus [HIV] disease (principal); E43 Unspecified severe protein-calorie malnutrition; B25.9 Cytomegaloviral disease, unspecified; D61.818 Other pancytopenia; A07.2 Cryptosporidiosis; K52.9 Noninfective gastroenteritis and colitis, unspecified; R19.7 Diarrhea, unspecified; E87.6 Hypokalemia; E83.42 Hypomagnesemia; K44.9 Diaphragmatic hernia without obstruction or gangrene; K64.8 Other hemorrhoids; Z82.49 Family history of ischemic heart disease and other diseases of the circulatory system; Z83.3 Family history of diabetes mellitus